=== PATIENT | female | born 1985 | race American Indian/Alaskan Native ===

== ENCOUNTER 2018-11-15 19:07 | Emergency (ER) | payer SELFPAY ==
[2018-11-15 20:22] LABS: Bilirubin,Urine NEG (Negative); Blood,Urine SM (Negative); Color,Urine Colorless (Yellow); Mucus,Urine FEW /HPF; Protein,Urine <15 mg/dL mg/dL (Negative); Urobilinogen,Urine < 2.0 mg/dL (<2.0); WBC,Urine < 1.0 /HPF (0.0-6.0)
[2018-11-15] MEDS ORDERED: NACL 0.9% 1000 ML 1,000 ML IV ONE (20:39)
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
[2018-11-15 21:02] LABS: Alanine Aminotransferase 8 units/L (7-56); Albumin 4.4 g/dL (3.9-5); BUN/Creatinine Ratio 14; Blood Urea Nitrogen 13 mg/dL (7-17); Calcium 9.1 mg/dL (8.4-10.2); Hemolysis Index 1
[2018-11-16 04:43] LABS: Amphetamine Screen,Urine PRESUMPTIVE NEGATIVE; Benzodiazepines Screen,Urine PRESUMPTIVE NEGATIVE; Cannabinoid Screen,Urine PRESUMPTIVE NEGATIVE; Cocaine Screen,Urine PRESUMPTIVE NEGATIVE; Methadone Screen,Urine PRESUMPTIVE NEGATIVE; Opiate Screen,Urine PRESUMPTIVE NEGATIVE
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
--- NOTE | 2018-11-17 11:04 | Progress Note ---
Subjective - Reason for Consult Consult date: 11/17/18 Reason for consult: Psychiatric Follow-up Evaluation - Chief Complaint Chief complaint: "I feel good." Patient is a 33-year-old -Cro[place] female who presented to the ER for possible HI's. Today the patient is calm and cooperative during assessment. She stated that the patient was upset and intoxicated prior to coming to the hospital. Patient reports that she does not have a problem with alcohol and would like to go home so that she can care for her children ( ages 8 and 2). She endorses appropriate appetite and sleep. Provider and patient discussed effective coping skills such as: counting, taking deep breath, walking around the neighborhood, and spending quality with kids. She denies SI/HI's, A/VH's, and delusions. At this time patient is in no imminent danger to self or others. Mental Status Exam - Vital signs Last Vital Signs Temp 98.3 F 11/17/18 08:20 Pulse 80 11/17/18 08:20 Resp 18 11/17/18 08:20 BP 112/73 11/17/18 08:20 Pulse Ox 97 11/17/18 08:20 - Exam Narrative exam: Mental Status Exam Appearance: calm, cooperative Behavior: regular eye contact Speech: regular rate and tone Mood: "I feel good" Affect: congruent to mood Thought Process: circumstantial Thought Content: denies SI/HI's and AVH's Motor Activity: ambulatory Cognition: A/O x 3 Insight: fair Judgment: fair Assessment and Plan Impression: Alcohol Use DO. Family Dynamics. Today the patient is calm and cooperative during the assessment. At the time that patient's 1013 is rescinded patient is in no imminent danger to self/others. Patient denies SI/HI's, A/VH's, delusions, and cravings. Presents cooperative and compliant. Discussed coping skills. Patient verbalizes full understanding. Collateral was gained on 11/16/18 by provider. DDx: R/O Mood DO Recommendation/Plan: 1. Will rescind 1013. 2. Discussed generalized coping skills with the patient, she verbalized understanding. Discussed the importance to abstain from alcohol consumption (etoh), she verbalized understanding. Disposition: Patient can follow up with [facility] for outpatient psy services (therapy). Will staff with Dr. Tulio Jean.
[2018-11-17 16:58] VITALS: BP 123/88
== END 2018-11-17 18:55 | disposition home or self-care (01) ==
LOC: ED 19:07
DX: F31.32 Bipolar disorder, current episode depressed, moderate (principal)
CPT/HCPCS: 36415; 80053; 80164; 80178; 80307; 81001; 84703; 93005; 93010; J7030; 80320; 96360; 96361; G0480

== ENCOUNTER 2019-11-18 02:38 | Emergency (ER) | payer SELFPAY ==
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
[2019-11-18 03:43] LABS: Basophils % (Auto) 0.3 % (0.0-1.8); Eosinophils % (Auto) 0.1 % (0.0-4.3); Hematocrit 33.7 % (30.3-42.9); Hemoglobin 11.3 gm/dl (10.1-14.3); Lymphocytes # (Auto) 1.1 K/mm3 (1.2-5.4); Lymphocytes % (Auto) 16.9 % (13.4-35.0); Mean Corpuscular HGB Conc 34 % (30-34); Mean Corpuscular Volume 89 fl (79-97); Monocytes # (Auto) 0.4 K/mm3 (0.0-0.8); Monocytes % (Auto) 5.7 % (0.0-7.3); Platelet Count 215 K/mm3 (140-440); Red Blood Count 3.77 M/mm3 (3.65-5.03); Red Cell Distribution Width 13.3 % (13.2-15.2)
[2019-11-18 03:49] LABS: BUN/Creatinine Ratio 20; Blood Urea Nitrogen 16 mg/dL (7-17); Calcium 9.1 mg/dL (8.4-10.2); Hemolysis Index 6
[2019-11-18 09:27] VITALS: BP 110/66
[2019-11-18 10:34] LABS: Bilirubin,Urine NEG (Negative); Blood,Urine SM (Negative); Color,Urine Yellow (Yellow); Mucus,Urine FEW /HPF; Protein,Urine <15 mg/dL mg/dL (Negative); Urobilinogen,Urine < 2.0 mg/dL (<2.0)
[2019-11-18 10:39] LABS: Amphetamine Screen,Urine Negative; Benzodiazepines Screen,Urine Negative; Cannabinoid Screen,Urine Negative; Cocaine Screen,Urine Negative; Methadone Screen,Urine Negative; Opiate Screen,Urine Negative
== END 2019-11-18 12:54 | disposition home or self-care (01) ==
LOC: ED 02:38
DX: F10.920 Alcohol use, unspecified with intoxication, uncomplicated (principal)
CPT/HCPCS: 36415; 80048; 80307; 80320; 81001; 85025; G0480